=== PATIENT | female | born 1995 | race African-American/Black ===

== ENCOUNTER 2025-03-21 06:39 | Emergency (ER) | payer BC ==
[~2025-03-21] VITALS: Ht 154.9 cm; Wt 91.0 kg
[2025-03-21 06:50] VITALS: O2SAT 98
[2025-03-21] MEDS ORDERED: ALBU90AE INH (10:00)
[2025-03-21] MEDS ORDERED: IBUP-1523 MT (10:00)
[2025-03-21] MEDS ORDERED: AZIT250T12 MT (10:00)
[2025-03-21] MEDS ORDERED: TOPUD MT (10:00)
[2025-03-21 10:20] VITALS: BP 123/84; PULSE 65; RESP 12; TEMP 36.9; O2SAT 100
== END 2025-03-21 10:44 | disposition home or self-care (01) ==
LOC: ER 06:39
DX: J20.9 Acute bronchitis, unspecified (principal); J02.9 Acute pharyngitis, unspecified; Z79.899 Other long term (current) drug therapy
CPT/HCPCS: 71045; 93005; 99283